=== PATIENT | male | born 1955 | race Caucasian/White ===

== ENCOUNTER 2016-10-25 12:32 | Emergency (ER) | payer OTHER ==
[~2016-10-25] VITALS: Wt 110.0 kg
--- NOTE | 2016-10-25 14:34 | RADRPT ---
PROCEDURE: XR Right Hand CLINICAL INDICATION: Pain, fall TECHNIQUE: AP, oblique, and lateral radiographs were submitted. COMPARISON: None FINDINGS: Osseous structures: appear well mineralized and intact with no fracture or destructive process iden tified. Joint spaces: are well maintained, with no significant spurring, erosion or joint effusion evident. Soft tissues: appear unremarkable. IMPRESSION: Unremarkable right hand. Physician Rob Date Time Electronically viewed and signed by Physician Rob on 10/25/2016 14:34 /
[2016-10-25] MEDS ORDERED: NAPR-260 PO (14:46)
--- NOTE | 2016-10-25 15:07 | ERD ---
ER Documentation Chief Complaint Date/Time DATE: 10/25/16 TIME: 15:03 Chief Complaint RIGHT HAND PAIN WHILE PLAYING GUITAR HPI Patient is a 61-year-old male who presents to the ED with right hand pain after playing his guitar. He states that he injured his hand 1 week ago. He states that he has pain on the top part of his hand specifically in his fingers. He states that it hurts when he bends his finger however he is able to bend his fingers. He denies fever or chills. Denies abdominal pain, nausea, vomiting or diarrhea. Denies chest pain or cough denies shortness of breath.. Denies headache or dizziness. Denies radiation of pain. Denies numbness or tingling. ROS All systems reviewed and are negative except as per history of present illness. 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 Appears in no acute distress. HEAD: Normocephalic, atraumatic. EYES: Pupils are equally reactive bilaterally. EOMs grossly intact. No conjunctival erythema. ENT: Moist mucous membranes. No uvula deviation. No kissing tonsils. No exudates. NECK: Supple. No lymphadenopathy or thyromegaly. No meningismus. negative kernig. negative brudinski. LUNG: Clear to auscultation bilaterally. No rhonchi, wheezing, rales or coarse breath sounds. HEART: Regular rate and rhythm. No murmurs, rubs or gallops. BACK: No midline tenderness. Extremities: Equal pulses bilaterally. No peripheral clubbing, cyanosis or edema. No unilateral leg swelling. Tenderness to the distal dorsal aspect of the right hand. Pain with separation of the third and fourth digit. Radius, ulnar and median nerve intact. Flexion of DIP and PIP intact. no swelling of fingers. negative kanavel sign. There is no erythema or ecchymosis. NEUROLOGIC: Alert and oriented. Moving all four extremities. 5/5 strength in all extremities. Normal speech. Steady gait. SKIN: Normal color. Warm and dry. No rashes or lesions. Capillary refill < 2 seconds Procedures/MDM ER COURSE: I kept the patient and/or family informed of laboratory and diagnostic imaging results throughout the emergency room course. IMAGING STUDIES [place] [address] Radiology Main Line: [phone] DIAGNOSTIC IMAGING REPORT Patient: OSMIN SERRATO : 1955 Age: 61 Sex: M MR #: [id number] DOS: 10/25/16 1344 Ordering MD: DELILAH WEBBER PA-C Location: FTE Room/Bed: PROCEDURE: XR Right Hand CLINICAL INDICATION: Pain, fall TECHNIQUE: AP, oblique, and lateral radiographs were submitted. COMPARISON: None FINDINGS: Osseous structures: appear well mineralized and intact with no fracture or destructive process identified. Joint spaces: are well maintained, with no significant spurring, erosion or joint effusion evident. Soft tissues: appear unremarkable. IMPRESSION: Unremarkable right hand. Physician Rob Date Time Electronically viewed and signed by Physician Rob on 10/25/2016 14:34 RH/ CC: DELILAH WEBBER PA-C PROCEDURES Nahid tape, Velcro wrist splint. Neurovascular intact post placement MEDICAL DECISION MAKING: This is a 61-year-old male who presents with finger pain after playing his guitar 1 week ago. Vital signs were reviewed. Patient is afebrile. Patient is not hypoxic. Patient is not toxic or ill-appearing. Patient likely has a finger strain versus sprain. Patient does not have snuffbox tenderness. His x- rays of by radiologist is unremarkable. I have low suspicion for flexor tenosynovitis. Low suspicion for dislocation, fracture, septic joint, compartment syndrome, osteomyelitis, cellulitis, avascular necrosis, neurological injury, vascular injury, tendon laceration. Low suspicion for abscess or cellulitis, DVT DISCHARGE: At this time, patient is stable for discharge and outpatient management with no new complaints during the ER course. Patient was sent home with Alexandre, copy of imaging report. Patient will be discharged home with instructions to recheck for new or worsening symptoms such as fever, nausea, weakness, LOC and to follow up with primary care in the next 1-2 days. Patient was advised to return to the ER for any new or worsening symptoms. Plan was discussed and patient and/ or family understands and agrees. Home instructions were given. Departure Diagnosis: Primary Impression: Finger pain, right Condition: Stable Patient Instructions: Sprain Finger Additional Instructions: FOLLOW UP WITH ORTHOPEDICS IN 2-3 DAYS Call your primary care doctor TOMORROW for an appointment during the next 1-2 days.See the doctor sooner or return here if your condition worsens before your appointment time. DELILAH WEBBER PA-C Oct 25, 2016 15:07
[2016-10-25 15:50] VITALS: BP 140/90; PULSE 89; RESP 17; TEMP 98.2
== END 2016-10-25 15:55 | disposition home or self-care (01) ==
LOC: FTE 12:32
DX: M79.644 Pain in right finger(s) (principal); F17.210 Nicotine dependence, cigarettes, uncomplicated

== ENCOUNTER 2017-11-01 18:33 | Emergency (ER) | END 2017-11-01 23:03 | disposition home or self-care (01) ==

== ENCOUNTER 2018-06-19 22:20 | Emergency (ER) | payer OTHER ==
[~2018-06-19] VITALS: Ht 170.2 cm; Wt 114.0 kg
[~2018-06-19 22:20] MED LIST: ATOR-2 PO; CARV12.598 PO; CLOP75TA27 PO; LOSA50TA14 PO; OLAN2.5T28 PO
[2018-06-19 22:24] VITALS: BP 167/73; PULSE 103; RESP 18; Ht 170.2 cm; Wt 114.0 kg
[2018-06-19] MEDS ORDERED: IPRATROPIUM (NEB) 0.5 MG/2.5 ML AMP NEB STA (23:11)
[2018-06-19] MEDS ORDERED: DEXAMETHASONE 10 MG/ML 1 ML INJ PO STA (23:11)
[2018-06-19] MEDS ORDERED: ALBUTEROL 0.083% (NEB) 2.5 MG/3 ML AMP NEB STA (23:11)
--- NOTE | 2018-06-19 23:36 | ERD ---
ER Documentation Chief Complaint Chief Complaint productive cough for 2 weeks, fevers off and on HPI This 62-year-old male who states "I had the flu." He admits to cough and chest congestion for over 10 days. He is tried chyf-ypz-nsslzom medications with no relief. He admits to fever intermittently but admits he did not take his temperature. No hemoptysis or unplanned weight loss. No nausea or vomiting. No chest pain palpitations ROS All systems reviewed and are negative except as per history of present illness. Medications Home Meds Active Scripts Promethazine HCl/Codeine (Prometh-Codein 6.25-10 mg/5 ml) 5 Ml Syrup, 5 ML PO Q6, #4 OZ Prov:EMIR CHISHOLM PA-C 06/19/18 Azithromycin* (Zithromax*) 250 Mg Tablet, 250 MG PO .ZPACK DIRECTED, #6 TAB TAKE 500 MG (2 TABS) THE FIRST DAY THEN 250 MG (1 TAB) DAYS 2-5 Prov:EMIR CHISHOLM PA-C 06/19/18 Reported Medications Olanzapine* (Zyprexa*) 2.5 Mg Tablet, 2.5 MG PO DAILY, #30 TAB 11/01/17 Losartan Potassium* (Losartan Potassium*) 50 Mg Tablet, 50 MG PO DAILY, TAB 11/01/17 Atorvastatin* (Atorvastatin*) 80 Mg Tablet, 80 MG PO QHS, #30 TAB 11/01/17 Carvedilol* (Coreg*) 12.5 Mg Tablet, 12.5 MG PO BID, #60 TAB 11/01/17 Clopidogrel Bisulfate (Clopidogrel) 75 Mg Tablet, 75 MG PO DAILY, #30 TAB 11/01/17 Allergies Allergies: Coded Allergies: No Known Allergy (Unverified , 11/01/17) PMhx/Soc History of Surgery: Yes (EAR X 3) Anesthesia Reaction: No Hx Neurological Disorder: No Hx Respiratory Disorders: No Hx Cardiac Disorders: Yes (stents, angioplasty) Hx Psychiatric Problems: Yes (DEPRESSION) Hx Miscellaneous Medical Probl: Yes (Herniated disk) Hx Alcohol Use: Yes Hx Substance Use: Yes (Past abuse of meth) Hx Tobacco Use: Yes (Cigarette pack a day) Smoking Status: Never smoker FmHx Family History: No diabetes Physical Exam Vitals Vital Signs Date Temp Pulse Resp B/P (MAP) Pulse Ox O2 O2 Flow FiO2 Time Delivery Rate 1/24/19 97 20 92 21 23:25 06/19/18 97.8 103 18 167/73 96 22:24 (104) Physical Exam INITIAL VITAL SIGNS: Reviewed by me GENERAL: Awake, alert and oriented x 4, well appearing, nontoxic, speaking in full sentences. No acute distress HEAD: Atraumatic NECK: Supple. No masses. Full range of motion. No meningismus. No midline tenderness. EYES: EOMI. PERRL. THROAT: No tonilar erythema or edema. No exudates. Uvula midline. No kissing tonsils. RESPIRATORY: Clear to auscultation bilaterally. Symmetric chest wall rise. No wheezing or rales. No accessory muscle use. Coughing CV: Regular rate and rhythm. No murmurs, rubs, or gallops. Results 24 hrs Current Medications Medications Dose Sig/Charlotte Start Time Status Last (Trade) Ordered Route PRN Stop Time Admin Dose Reason Admin Albuterol 5 mg ONCE STAT 06/19/18 DC 06/19/18 (Proventil NEB 23:11 23:25 0.083% (Neb)) 06/19/18 23:12 Ipratropium 0.5 mg ONCE STAT 06/19/18 DC 06/19/18 [place] NEB 23:11 23:25 (Atrovent 06/19/18 23:12 0.02% (Neb)) 10 mg ONCE STAT 06/19/18 DC 06/19/18 Dexamethasone PO 23:11 23:26 (Decadron) 06/19/18 23:12 Procedures/MDM Patient presents with cough for 2 weeks. He is afebrile and his lungs are clear but he does have coughing in the exam room. No chest pain palpitations or shortness of breath. I doubt cardiac etiology for his symptoms. He was given Decadron and a breathing treatment with improvement. Chest x-ray was ordered. Chest x-ray is negative. Patient discharged with Z-Roderick. Patient counseled regarding my diagnostic impression and care plan. Prior to discharge all questions answered. Pt agrees with treatment plan and understands strict return precautions. Pt is instructed to follow up with primary care provider within 24- 48 hours. Precautionary instructions provided including instructions to return to the ER if not improving or for any worsening or changing symptoms or concerns. Departure Diagnosis: Primary Impression: Bronchitis Condition: Stable EMIR CHISHOLM PA-C Jun 19, 2018 23:36
[2018-06-19] MEDS ORDERED: AZIT250T PO (23:46)
[2018-06-19] MEDS ORDERED: PROM5SYR2 PO (23:56)
== END 2018-06-20 01:17 | disposition home or self-care (01) ==
LOC: FTE 22:20
DX: J40 Bronchitis, not specified as acute or chronic (principal); Z98.61 Coronary angioplasty status; Z79.01 Long term (current) use of anticoagulants
CPT/HCPCS: 71045; 94664; J1100; Z7502; Z7610

== ENCOUNTER 2018-09-05 22:54 | Emergency (ER) | payer OTHER ==
[~2018-09-05] VITALS: Ht 170.2 cm; Wt 113.5 kg
[~2018-09-05 22:54] MED LIST changes: +AZIT250T PO; +PROM5SYR2 PO
[2018-09-05 23:04] VITALS: Ht 170.2 cm; Wt 113.5 kg
[2018-09-06 02:26] VITALS: BP 135/95; PULSE 78; RESP 16
[2018-09-06] MEDS ORDERED: CEPH-443 PO (03:03)
[2018-09-06] MEDS ORDERED: SULF1TAB31 PO (03:03)
--- NOTE | 2018-09-07 16:41 | ERD ---
ER Documentation Chief Complaint Chief Complaint C/O NATALIE LEG SWELLING W/ PAIN X10 DAYS HPI The patient is a 62-year-old male, presenting to the ER because of bilateral leg swelling and redness for 10 days, more on the left than the right, denies similar symptoms previously, denies trauma, denies fever, chills, neck pain, chest pain, dyspnea, abdominal pain, vomiting. He is homeless, smokes, denies drinking or using illicit drug Past medical history: Left ear deafness, CAD, history of CHF, hypertension Past surgical history: Stent PCI, umbilical herniorrhaphy ROS All systems reviewed and are negative except as per history of present illness. Medications Home Meds Active Scripts Sulfamethoxazole/Trimethoprim* (Bactrim Ds* Tablet) 1 Each Tablet, 1 TAB PO BID, #20 TAB Prov:DELIO NUNEZ MD 09/06/18 Cephalexin* (Keflex*) 500 Mg Capsule, 500 MG PO QID for 10 Days, CAP Prov:DELIO NUNEZ MD 09/06/18 Promethazine HCl/Codeine (Prometh-Codein 6.25-10 mg/5 ml) 5 Ml Syrup, 5 ML PO Q6, #4 OZ Prov:EMIR CHISHOLM PA-C 06/19/18 Azithromycin* (Zithromax*) 250 Mg Tablet, 250 MG PO .ZPACK DIRECTED, #6 TAB TAKE 500 MG (2 TABS) THE FIRST DAY THEN 250 MG (1 TAB) DAYS 2-5 Prov:EMIR CHISHOLM PA-C 06/19/18 Reported Medications Olanzapine* (Zyprexa*) 2.5 Mg Tablet, 2.5 MG PO DAILY, #30 TAB 11/01/17 Losartan Potassium* (Losartan Potassium*) 50 Mg Tablet, 50 MG PO DAILY, TAB 11/01/17 Atorvastatin* (Atorvastatin*) 80 Mg Tablet, 80 MG PO QHS, #30 TAB 11/01/17 Carvedilol* (Coreg*) 12.5 Mg Tablet, 12.5 MG PO BID, #60 TAB 11/01/17 Clopidogrel Bisulfate (Clopidogrel) 75 Mg Tablet, 75 MG PO DAILY, #30 TAB 11/01/17 Allergies Allergies: Coded Allergies: No Known Allergy (Unverified , 09/06/18) PMhx/Soc History of Surgery: Yes (EAR X 3) Anesthesia Reaction: No Hx Neurological Disorder: No Hx Respiratory Disorders: No Hx Cardiac Disorders: Yes (stents, angioplasty) Hx Psychiatric Problems: Yes (DEPRESSION) Hx Miscellaneous Medical Probl: Yes (Herniated disk) Hx Alcohol Use: Yes 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 Head: Atraumatic. Eyes: Normal Conjunctiva. ENT: Normal External Ears, Nose and Mouth. Neck: Full range of motion. No meningismus. Resp: Clear to auscultation bilaterally. Cardio: Regular rate and rhythm. Abd: Soft, non distended, normal bowel sounds, non tender. Skin: No petechiae or rashes. Back: No midline or flank tenderness. Ext: Bilateral leg edema, mild erythema on the left lower extremity Neur: Awake and alert. No focal deficit Psych: Normal Mood and Affect. Result Diagram: 09/06/18 0107 09/06/18 0030 Results 24 hrs Laboratory Tests Test 09/06/18 00:30 09/06/18 01:07 09/06/18 01:55 Sodium Level 139 mmol/L Potassium Level 3.8 mmol/L Chloride Level 104 mmol/L Carbon Dioxide Level 26 mmol/L Anion Gap 9 Blood Urea Nitrogen 19 mg/dl Creatinine 0.90 mg/dl Est Glomerular Filtrat > 60 mL/min Rate mL/min Glucose Level 109 mg/dl Calcium Level 9.0 mg/dl Troponin I < 0.012 ng/ml B-Type Natriuretic Peptide 29 PG/ML White Blood Count 6.3 10^3/ul Red Blood Count 5.05 10^6/ul Hemoglobin 13.5 g/dl Hematocrit 42.2 % Mean Corpuscular Volume 83.6 fl Mean Corpuscular Hemoglobin 26.7 pg Mean Corpuscular 32.0 g/dl Hemoglobin Concent Red Cell Distribution Width 15.9 % Platelet Count 252 10^3/UL Mean Platelet Volume 10.4 fl Immature Granulocytes % 0.500 % Neutrophils % 61.3 % Lymphocytes % 23.0 % Monocytes % 12.0 % Eosinophils % 2.2 % Basophils % 1.0 % Nucleated Red Blood Cells % 0.0 /100WBC Immature Granulocytes # 0.030 10^3/ul Neutrophils # 3.8 10^3/ul Lymphocytes # 1.4 10^3/ul Monocytes # 0.8 10^3/ul Eosinophils # 0.1 10^3/ul Basophils # 0.1 10^3/ul Nucleated Red Blood Cells # 0.0 10^3/ul Prothrombin Time 13.0 Sec Prothrombin Time Ratio 1.0 INR International 0.97 Normalized Ratio Activated Partial Thromboplast 30.9 Sec Time Procedures/MDM [place] [address] Radiology Main Line: [phone] DIAGNOSTIC IMAGING REPORT Patient: OSMIN SERRATO : 1955 Age: 62 Sex: M MR #: [id number] DOS: 09/06/18 0107 Ordering MD: DELIO NUNEZ MD Location: E/R Room/Bed: PROCEDURE: XR Chest. CLINICAL INDICATION: Dyspnea. TECHNIQUE: Single frontal view of the chest. COMPARISON: Plain film chest dated 03/18/2018. FINDINGS: Cardiomegaly with mildly tortuous thoracic aorta, and these findings are without significant telephone exchange operator interval. New mild pulmonary mass congestion. Mild atelectasis versus airspace disease at the lung bases is new over interval. The lungs are otherwise clear. No signs of pleural fluid or pneumothorax are seen. The osseous structures and soft tissues are unremarkable. IMPRESSION: Cardiomegaly and mild failure. RPTAT: UU Physician Ashley Date Time Electronically viewed and signed by Physician Ashley on 09/06/2018 02:38 RS/ CC: DELIO NUNEZ MD [id number] [place] [address] Radiology Main Line: [phone] DIAGNOSTIC IMAGING REPORT Patient: OSMIN SERRATO : 1955 Age: 62 Sex: M MR #: [id number] DOS: 09/06/18 0107 Ordering MD: DELIO NUNEZ MD Location: E/R Room/Bed: PROCEDURE: Bilateral lower extremity venous duplex exam. CLINICAL INDICATION: Shortness of breath and bilateral lower extremity edema with concern for DVT. TECHNIQUE: Multiplanar sonographic, color flow and spectral waveform Doppler images of the veins of the bilateral lower extremities submitted for evaluation. COMPARISON: None. FINDINGS: Right lower extremity: Normal patency, compressibility and augmentation of the common femoral, femoral and popliteal veins without evidence of DVT. Posterior tibial and peroneal veins appear patent. Mild dependent soft tissue edema noted below the knee. Left lower extremity: Normal patency, compressibility and augmentation of the common femoral, femoral and popliteal veins without evidence of DVT. Posterior tibial and peroneal veins appear patent. Mild dependent soft tissue edema noted below the knee. IMPRESSION: 1. Bilateral lower extremity venous duplex exam negative for DVT. 2. Mild bilateral lower extremity dependent soft tissue edema noted below the knees. RPTAT: HSAN Physician Carley Date Time Electronically viewed and signed by Physician Carley on 09/06/2018 03:01 xN/ CC: DELIO NUNEZ MD [id number] EKG: Read by emergency physician Rate/Rhythm: Normal Sinus Rhythm 90 beats/min QRS, ST, T-waves: No ST elevation, no T inversion, SA Impression: Abnormal EKG MEDICAL MAKING DECISION: The patient is a 62-year-old male, presenting with acute peripheral edema, acute right lower extremity cellulitis, is stable for outpatient follow-up The differential diagnoses considered include but are not limited to asthma, COPD, pneumonia, pulmonary embolus, pleural effusion, congestive heart failure. Departure Diagnosis: Primary Impression: Cellulitis Additional Impressions: Peripheral edema Anemia Condition: Good Patient Instructions: Cellulitis Referrals: [facility] YOU HAVE RECEIVED A MEDICAL SCREENING EXAM AND THE RESULTS INDICATE THAT YOU DO NOT HAVE A CONDITION THAT REQUIRES URGENT TREATMENT IN THE EMERGENCY DEPARTMENT. FURTHER EVALUATION AND TREATMENT OF YOUR CONDITION CAN WAIT UNTIL YOU ARE SEEN IN YOUR DOCTORS OFFICE WITHIN THE NEXT 1-2 DAYS. IT IS YOUR RESPONSIBILITY TO MAKE AN APPOINTMENT FOR FOLOW-UP CARE. IF YOU HAVE A PRIMARY DOCTOR --you should call your primary doctor and schedule an appointment IF YOU DO NOT HAVE A PRIMARY DOCTOR YOU CAN CALL OUR PHYSICIAN REFERRAL HOTLINE AT IF YOU CAN NOT AFFORD TO SEE A PHYSICIAN YOU CAN CHOSE FROM THE FOLLOWING [facility] [address] [facility] [address] [facility] [facility] [address] [facility] [facility] [address] [facility] [facility] [address] [facility]. [address] [facility] [place]. [facility] YOU HAVE RECEIVED A MEDICAL SCREENING EXAM AND THE RESULTS INDICATE THAT YOU DO NOT HAVE A CONDITION THAT REQUIRES URGENT TREATMENT IN THE EMERGENCY DEPARTMENT. FURTHER EVALUATION AND TREATMENT OF YOUR CONDITION CAN WAIT UNTIL YOU ARE SEEN IN YOUR DOCTORS OFFICE WITHIN THE NEXT 1-2 DAYS. IT IS YOUR RESPONSIBILITY TO MAKE AN APPOINTMENT FOR FOLOW-UP CARE. IF YOU HAVE A PRIMARY DOCTOR --you should call your primary doctor and schedule and appointment IF YOU DO NOT HAVE A PRIMARY DOCTOR YOU CAN CALL OUR PHYSICIAN REFERRAL HOTLINE AT . IF YOU CAN NOT AFFORD TO SEE A PHYSICIAN YOU CAN CHOSE FROM THE FOLLOWING [facility] INSTITUTIONS: [facility] [address] [place] [address] [facility] [address] [place] [address] [facility] [address] [place] [address] Additional Instructions: [place]: [place] the [place] [facility] [place]2 [place]. [place] [id number] [place] [address] [facility] [address] [place] [address] [facility] [address] [place] [address] Comments He was discharged with Keflex and Bactrim DS The patient's blood pressure was elevated (>120/80) but appears stable without evidence of hypertension emergency or urgency. The patient was counseled about the risks of hypertension and urged to pursue outpatient monitoring and therapy within a week with their primary care physician. I have provided a medical screening exam and evaluation. Referral to outpatient behavioral health for follow up is [not indicated The patient is clinically stable for discharge. I have communicated after-visit instructions and plan to the patient. Because patient has been identified as without residence, the hospital policy and process for discharge requirements have been initiated by appropriate hosp ital staff. DELIO NUNEZ MD Sep 07, 2018 16:41
== END 2018-09-06 04:17 | disposition home or self-care (01) ==
LOC: E/R 22:54
DX: L03.115 Cellulitis of right lower limb (principal); L03.116 Cellulitis of left lower limb; R60.0 Localized edema; D64.9 Anemia, unspecified; R06.00 Dyspnea, unspecified; Z87.891 Personal history of nicotine dependence; Z98.61 Coronary angioplasty status
CPT/HCPCS: 36415; 71045; 80048; 83880; 84484; 85025; 85610; 85730; 93005; 93970; Z7502; Z7610

== ENCOUNTER 2018-10-02 18:51 | Emergency (ER) | payer OTHER ==
[~2018-10-02] VITALS: Ht 170.2 cm; Wt 112.6 kg
[~2018-10-02 18:51] MED LIST changes: +CEPH-443 PO; +SULF1TAB31 PO
[2018-10-02 19:11] VITALS: Ht 170.2 cm; Wt 112.6 kg
[2018-10-02 22:15] VITALS: BP 124/93; PULSE 96; RESP 23
[2018-10-02] MEDS ORDERED: PROCHLORPERAZINE 10 MG INJ IV STA (22:35)
[2018-10-02] MEDS ORDERED: HYDROmorphONE 1 MG/ML SYG IV STA (22:35)
[2018-10-02] MEDS ORDERED: ONDANSETRON 4 MG INJ IV STA (22:35)
[2018-10-02] MEDS ORDERED: SOD CHLORIDE 0.9% 1,000 ML IV STA (22:35)
[2018-10-02] MEDS ORDERED: DIPHENHYDRAMINE 50 MG INJ ONE (22:57)
[2018-10-02] MEDS ORDERED: TRAM50TA2 PO (23:31)
--- NOTE | 2018-10-02 23:40 | ERD ---
ER Documentation Chief Complaint Chief Complaint C/O GENERALIZED BODY PAIN X2 DAYS, STATES FEELS FAINT HPI This is a 63-year-old male who complains that he has a frontal headache that is pounding. He states that he thinks he needs some fluids. He denies any fever no focal neurological complaints no chest pain or shortness of breath. No loss of vision speech or swallowing. He does get occasional headaches like this. He has no photophobia phonophobia or worse with position change. I came into the patient's room he was sleeping comfortably ROS All systems reviewed and are negative except as per history of present illness. Medications Home Meds Active Scripts Tramadol HCl (Tramadol HCl) 50 Mg Tablet, 50 MG PO Q6, #20 TAB Prov:GABBI AN DO 10/02/18 Discontinued Reported Medications Olanzapine* (Zyprexa*) 2.5 Mg Tablet, 2.5 MG PO DAILY, #30 TAB 11/01/17 Losartan Potassium* (Losartan Potassium*) 50 Mg Tablet, 50 MG PO DAILY, TAB 11/01/17 Atorvastatin* (Atorvastatin*) 80 Mg Tablet, 80 MG PO QHS, #30 TAB 11/01/17 Carvedilol* (Coreg*) 12.5 Mg Tablet, 12.5 MG PO BID, #60 TAB 11/01/17 Clopidogrel Bisulfate (Clopidogrel) 75 Mg Tablet, 75 MG PO DAILY, #30 TAB 11/01/17 Discontinued Scripts Sulfamethoxazole/Trimethoprim* (Bactrim Ds* Tablet) 1 Each Tablet, 1 TAB PO BID, #20 TAB Prov:DELIO NUNEZ MD 09/06/18 Cephalexin* (Keflex*) 500 Mg Capsule, 500 MG PO QID for 10 Days, CAP Prov:DELIO NUNEZ MD 09/06/18 Promethazine HCl/Codeine (Prometh-Codein 6.25-10 mg/5 ml) 5 Ml Syrup, 5 ML PO Q6, #4 OZ Prov:EMIR CHISHOLM PA-C 06/19/18 Azithromycin* (Zithromax*) 250 Mg Tablet, 250 MG PO .ZPACK DIRECTED, #6 TAB TAKE 500 MG (2 TABS) THE FIRST DAY THEN 250 MG (1 TAB) DAYS 2-5 Prov:EMIR CHISHOLM PA-C 06/19/18 Allergies Allergies: Coded Allergies: No Known Allergy (Unverified , 10/02/18) PMhx/Soc History of Surgery: Yes (EAR X 3) Anesthesia Reaction: No Hx Neurological Disorder: No Hx Respiratory Disorders: No Hx Cardiac Disorders: Yes (Stents X3 in 2018) Hx Psychiatric Problems: Yes (DEPRESSION) Hx Miscellaneous Medical Probl: Yes (Herniated disk) Hx Alcohol Use: Yes Hx Substance Use: Yes (Past abuse of meth) Hx Tobacco Use: Yes (Cigarette pack a day) Smoking Status: Former smoker FmHx Family History: No coronary disease Physical Exam Vitals Vital Signs Date Temp Pulse Resp B/P (MAP) Pulse Ox O2 O2 Flow FiO2 Time Delivery Rate 10/02/18 96 23 124/93 99 Room Air 22:15 (103) 10/02/18 99.4 108 19 141/87 99 19:11 (105) Physical Exam Const: Well-developed, well-nourished Head: Atraumatic, normocephalic Eyes: Normal Conjunctiva, PERRLA, EOMI, normal sclera, no nystagmus ENT: Normal External Ears, Nose and Mouth, moist mucus membranes. Neck: Full range of motion. No meningismus, no lymphadenopathy. Resp: Clear to auscultation bilaterally, no wheezing, rhonchi, rales Cardio: Regular rate and rhythm, no murmurs, S1 S2 present Abd: Soft, non tender x 4, non distended. Normal bowel sounds, no guarding or rebound, no pulsitile abdominal masses or bruits Skin: No petechiae or rashes, no ecchymosis , no maculopapular rash Back: No midline or flank tenderness Ext: No cyanosis, or edema, FROM x 4, normal inspection, neurovascularly intact x 4 Neur: Awake and alert, STR 5/5 x 4, sensation intact x 4, no focal findings, cerebellum intact Psych: Normal Mood and Affect Result Diagram: 10/02/182 10/02/182 Results 24 hrs Laboratory Tests Test 10/02/18 22:42 White Blood Count 7.8 10^3/ul Red Blood Count 5.24 10^6/ul Hemoglobin 14.1 g/dl Hematocrit 42.7 % Mean Corpuscular Volume 81.5 fl Mean Corpuscular Hemoglobin 26.9 pg Mean Corpuscular Hemoglobin Concent 33.0 g/dl Red Cell Distribution Width 14.7 % Platelet Count 232 10^3/UL Mean Platelet Volume 9.8 fl Immature Granulocytes % 0.600 % Neutrophils % 69.1 % Lymphocytes % 13.8 % Monocytes % 15.7 % Eosinophils % 0.4 % Basophils % 0.4 % Nucleated Red Blood Cells % 0.0 /100WBC Immature Granulocytes # 0.050 10^3/ul Neutrophils # 5.4 10^3/ul Lymphocytes # 1.1 10^3/ul Monocytes # 1.2 10^3/ul Eosinophils # 0.0 10^3/ul Basophils # 0.0 10^3/ul Nucleated Red Blood Cells # 0.0 10^3/ul Sodium Level 136 mmol/L Potassium Level 3.8 mmol/L Chloride Level 100 mmol/L Carbon Dioxide Level 30 mmol/L Anion Gap 6 Blood Urea Nitrogen 14 mg/dl Creatinine 1.09 mg/dl Est Glomerular Filtrat Rate mL/min > 60 mL/min Glucose Level 106 mg/dl Calcium Level 9.2 mg/dl Current Medications Medications Dose Sig/Charlotte Start Time Status Last (Trade) Ordered Route PRN Stop Time Admin Dose Reason Admin Sodium 1,000 ml @ Q1H STAT 10/02/18 DC 10/02/18 Chloride 1,000 mls/hr IV 22:35 10/02/18 22:48 23:34 10 mg ONCE STAT 10/02/18 DC 10/02/18 Prochlorperaz IV 22:35 10/02/18 22:47 ine 22:36 (Compazine Inj) Ondansetron 4 mg ONCE STAT 10/02/18 DC 10/02/18 HCl (Zofran IV 22:35 10/02/18 22:47 Inj) 22:36 1 mg ONCE STAT 10/02/18 DC 10/02/18 Hydromorphone IV 22:35 10/02/18 22:47 HCl 22:36 (Dilaudid) 50 mg STK-MED 10/02/18 DC Diphenhydrami ONCE .ROUTE 22:57 10/02/18 ne HCl 22:58 (Benadryl) Procedures/MDM Patient: OSMIN SERRATO : 1955 Age: 63 Sex: M MR #: [id number] DOS: 10/02/182234 Ordering MD: GABBI AN DO Location: E/R Room/Bed: PROCEDURE: CT Brain without contrast. CLINICAL INDICATION: Headache. TECHNIQUE: A CT of the brain was performed utilizing axial imaging from the skull base through the vertex without IV contrast. Multiplanar reformatted images were made. Images were reviewed on a PACS workstation. The CTDIvol is 37.13 mGy and the DLP is 713.51 mGycm. DICOM images are available. One or more of the following dose reduction techniques were utilized: 1.) Automated exposure control 2.) Adjustment of the mA +/- kV according to patient's size 3.) Use of iterative reconstruction technique. COMPARISON: None FINDINGS: There is no intracranial hemorrhage, mass effect, or midline shift. No extra- axial fluid collection is seen. The ventricles and sulci are normal in size and configuration. The density of the brain is normal, and the esqueda white matter differentiation appears well-preserved. The visualized paranasal sinuses and osseous structures are grossly unremarkable. IMPRESSION: 1. No evidence of acute intracranial pathology. 2. The brain is normal in appearance. RPTAT: [facility] Physician Ashley Date Time Electronically viewed and signed by Physician Ashley on 10/02/2018 23:53 RS/ CC: GABBI AN DO [id number] Patient's labs are unremarkable. The patient likely has some type of headache/viral illness. He is feeling much better will discharge home. Patient feels much better at this time, and vital signs are normal, symptoms have improved. I did give strict instructions to return to the ED if symptoms continue or worsen, patient will otherwise follow-up with primary care physician. Patient understood instructions and agreed to plan. Disclaimer: Inadvertent spelling and grammatical errors are likely due to EHR/dictation software use and do not reflect on the overall quality of patient care. Also, please note that the electronic time recorded on this note does not necessarily reflect the actual time of the patient encounter. Departure Diagnosis: Primary Impression: Headache Headache type: unspecified Headache chronicity pattern: unspecified pattern Intractability: not intractable Qualified Codes: R51 - Headache Condition: Stable Patient Instructions: Self-Care for Headaches GABBI AN DO October 02, 2018 23:40
== END 2018-10-03 01:13 | disposition home or self-care (01) ==
LOC: E/R 18:51
DX: R51 Headache (principal); F17.210 Nicotine dependence, cigarettes, uncomplicated; Z98.61 Coronary angioplasty status; Z79.01 Long term (current) use of anticoagulants
CPT/HCPCS: 36415; 70450; 80048; 85025; 96374; 96375; J0780; J1170; J1200; J2405; J7030; Z7502